=== PATIENT | female | born 1950 | race Caucasian/White ===

== ENCOUNTER 2016-04-25 12:16 | Day surgery (SDC) | payer MEDICARE, OTHER ==
[2016-04-25] MEDS ORDERED: ACETAMINOPHEN 1000MG/100 ML PREMIX IV ONE (13:45)
[2016-04-25] MEDS ORDERED: ONDANSETRON HCL IV 4 MG/2 ML VIAL IVP SCH (13:45)
[2016-04-25] MEDS ORDERED: CEFAZOLIN 1 Gram 50 ML IVPB ONE (13:45)
[2016-04-25] MEDS ORDERED: HYDROCODONE/APAP 5/325MG TABLET PO ONE (14:00)
[2016-04-25] MEDS ORDERED: LIDOCAINE 2% MDV (20MG/ML) 20ML VIAL IV ONE (14:00)
[2016-04-25] MEDS ORDERED: BUPIVACAINE 0.5% W/EPI MPF 30 ML VIAL IVP ONE (14:00)
[2016-04-25] MEDS ORDERED: PROPOFOL 10 MG/ML VIAL IV ONE (14:00)
[2016-04-25] MEDS ORDERED: ONDANSETRON HCL IV 4 MG/2 ML VIAL IVP ONE (14:00)
[2016-04-25] MEDS ORDERED: FENTANYL PF 100MCG/2ML VIAL IV ONE (14:00)
[2016-04-25] MEDS ORDERED: MIDAZOLAM HCL 2MG/2ML VIAL IV ONE (14:00)
--- NOTE | 2016-04-30 12:50 | Operative Note ---
DATE OF SURGERY: 04/25/2016 PREOPERATIVE DIAGNOSIS: Bilateral postoperative breast seromas. POSTOPERATIVE DIAGNOSIS: Bilateral postoperative breast seromas. OPERATION: Incision, drainage, and placement of Rudy-Stevens drains, bilateral breast seromas. Surgeon: Jaskaran Bower MD Anesthesia: Local with sedation. DRAINS: 15 round Eduardo. SPECIMENS: None. COMPLICATIONS: None. FINDINGS: Bilateral postoperative seromas. No hematoma, no other pathology. Indication: The patient is a very nice 65-year-old woman who is 2 days postop bilateral capsulectomies and implant exchange. She called the office concerned about swelling. She was asked to come in to be evaluated. It was obvious at that point that she had significant seromas. PROCEDURE: The patient was interviewed preoperatively and the operative plan was reviewed. She was then taken to the operating room and with satisfactory section was prepped and draped and blocked in the usual sterile manner. I opened her previous incisions and drained serosanguineous fluid, almost 350 mL from each side. We then irrigated with saline until clear. We then placed 15 round Rudy-Stevens drains, secured them with 3-0 nylon, placed local anesthetic 15 mL and then closed each incision again with interrupted 3-0 Monocryl. She tolerated the procedure well without complication. MD ANDRE Napier
== END 2016-04-25 15:55 | disposition home or self-care (01) ==
LOC: SUR 12:16
PROVIDERS: ATTEND Plastic Surgery
DX: L76.34 Postprocedural seroma of skin and subcutaneous tissue following other procedure (principal); I10 Essential (primary) hypertension
CPT/HCPCS: 93005; 93010; 10140; 00400; J2405; J3010; J0690